=== PATIENT | male | born 1975 | race Hispanic/Latino ===

== ENCOUNTER 2017-12-31 22:54 | Emergency (ER) | payer OTHER ==
[2017-12-31 23:04] VITALS: TEMP 99.1
--- NOTE | 2017-12-31 23:17 | ED PDOC ---
HPI: Psych/Substance Abuse Chief Complaint (Nursing): Psychiatric Evaluation History Per: Patient History/Exam Limitations: no limitations Onset/Duration Of Symptoms: Hrs Additional Complaint(s): Hx of depression on zoloft presenting with potential SI. Patient states that he missed his flight to [place] today and felt upset about it, states he fell asleep at 7PM and woke up to his friend and police knocking at his door. States he did not express suicidal or homicidal thoughts. Admits to drinking 6 beers, denies drugs. Past Medical History Reviewed: Historical Data, Nursing Documentation, Vital Signs Vital Signs: Last Vital Signs Temp 99.1 F 12/31/17 23:00 Pulse 129 H 12/31/17 23:00 Resp 18 12/31/17 23:00 BP 156/125 H 12/31/17 23:00 Pulse Ox 94 L 12/31/17 23:00 - Medical History PMH: Depression - Family History Family History: States: No Known Family Hx - Allergies Allergies/Adverse Reactions: Allergies Allergy/AdvReac Type Severity Reaction Status Date / Time No Known Allergies Allergy Verified 12/31/17 22:59 Review of Systems ROS Statement: Except As Marked, All Systems Reviewed And Found Negative Psych: Positive for: Depression Physical Exam - Reviewed Nursing Documentation Reviewed: Yes Vital Signs Reviewed: Yes - Physical Exam Appears: Positive for: Well, Non-toxic, No Acute Distress Head Exam: Positive for: ATRAUMATIC, NORMAL INSPECTION, NORMOCEPHALIC Skin: Positive for: Normal Color, Warm, DRY Eye Exam: Positive for: EOMI, Normal appearance, PERRL ENT: Positive for: Normal ENT Inspection Neck: Positive for: Normal, Painless ROM Cardiovascular/Chest: Positive for: Regular Rate, Rhythm Respiratory: Positive for: CNT, Normal Breath Sounds Gastrointestinal/Abdominal: Positive for: Normal Exam, Soft. 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 Negative for: Motor/Sensory Deficits - Laboratory Results Result Diagrams: 01/01/18 00:36 01/01/18 00:36 - ECG O2 Sat by Pulse Oximetry: 94 Pulse Ox Interpretation: Normal Medical Decision Making Medical Decision MakinPM Patient with depression presenting with possible SI -patient currently denying all SI/HI -will get labs to clear medically -patient tachy and hypertense currently, will recheck -crisis eval pending -patient well appearing, pleasant and calm 300 -Patient cleared by crisis and referral given -Patient admits to cocaine abuse, however aysymptomatic (no chest pain, shortness of breath, headache, vision changes, etc.) -Patient was given clonidine but patient refused to stay for repeat BP check -Adivsed to followup with PMD re: BP Disposition - Clinical Impression Clinical Impression: Depression - Disposition Referrals: [facility] [Outside] Disposition Time: 03:00 Condition: STABLE Instructions: Depression Forms: [facility] ([place]ian)
[2018-01-01 00:51] LABS: BASO # 0.1 K/uL (0.0-0.2); BASO % 0.8 % (0.0-2.0); EOS # 0.1 K/uL (0.0-0.7); EOS % 1.3 % (0.0-4.0); HEMOGLOBIN 17.7 g/dL (12.0-18.0); LYMPH # 2.8 K/uL (1.0-4.3); LYMPH % 30.2 % (20.0-40.0); MEAN CELL VOLUME 90.3 fl (80.0-94.0); MEAN CORPUSCULAR HEMOGLOBIN 31.1 pg (27.0-31.0); MEAN CORPUSCULAR HGB CONC 34.4 g/dL (33.0-37.0); MEAN PLATELET VOLUME 8.9 fl (7.2-11.7); MONO # 0.9 K/uL (0.0-0.8); MONO % 9.9 % (0.0-10.0); NEUT # 5.4 K/uL (1.8-7.0); NEUT % 57.8 % (50.0-75.0); NRBC % 0.2 % (0.0-0.0); RBC 5.69 Mil/uL (4.40-5.90); RED CELL DISTRIBUTION WIDTH 14.8 % (11.5-14.5); WHITE BLOOD COUNT 9.4 K/uL (4.8-10.8)
[2018-01-01 00:55] LABS: URINE BILIRUBIN NEGATIVE (NEGATIVE); URINE BLOOD NEGATIVE (NEGATIVE); URINE CLARITY CLEAR (Clear); URINE COLOR STRAW (YELLOW); URINE GLUCOSE (UA) NEG (Normal); URINE LEUKOCYTE ESTERASE NEG Leu/uL (Negative); URINE PROTEIN NEGATIVE (NEGATIVE); URINE UROBILINOGEN 0.2-1.0 mg/dL (0.2-1.0)
[2018-01-01 01:06] LABS: ACETAMINOPHEN < 10.0 ug/ml (10.0-30.0); SALICYLATE < 1.0 mg/dl
[2018-01-01 01:07] LABS: BLOOD UREA NITROGEN 7 mg/dl (9-20); CALCIUM 9.3 mg/dL (8.4-10.2); GFR NON-AFRICAN AMERICAN > 60
[2018-01-01 01:18] LABS: BARBITURATES, UR NEGATIVE (NEGATIVE); BENZODIAZEPINES, UR NEGATIVE (NEGATIVE); OPIATES, UR NEGATIVE (NEGATIVE); PHENCYCLIDINE, UR NEGATIVE (NEGATIVE)
[2018-01-01 03:12] VITALS: BP 152/124; PULSE 90
[2018-01-01 03:13] VITALS: RESP 17
[2018-01-01 04:15] VITALS: O2SAT 94
== END 2018-01-01 03:18 | disposition home or self-care (01) ==
LOC: H.ER 22:54
DX: F32.9 Major depressive disorder, single episode, unspecified (principal)